=== PATIENT | female | born 1960 | race Caucasian/White ===

== ENCOUNTER 2019-05-26 15:57 | Emergency (ER) | payer OTHER ==
[~2019-05-26] VITALS: Ht 165.1 cm; Wt 64.5 kg
[2019-05-26] MEDS ORDERED: ASPI-1227 PO (16:02)
[2019-05-26] MEDS ORDERED: PERTUSS(ACELL),DIPH,TET VAC/PF 0.5 ML VIAL IM ONE (17:15)
[2019-05-26] MEDS ORDERED: LIDOCAINE 1%/EPI 1:200,000/PF 10 ML VIAL INJ ONE (17:15)
[2019-05-26 18:28] VITALS: BP 151/78
== END 2019-05-26 18:31 | disposition home or self-care (01) ==
LOC: EMS 16:01
DX: S81.811A Laceration without foreign body, right lower leg, initial encounter (principal); V29.9XXA Motorcycle rider (driver) (passenger) injured in unspecified traffic accident, initial encounter; Y93.55 Activity, bike riding; Y92.89 Other specified places as the place of occurrence of the external cause; Y99.8 Other external cause status
CPT/HCPCS: 90471; 90715; 99283; J3490